=== PATIENT | male | born 1950 | race Caucasian/White ===

== ENCOUNTER 2016-06-08 10:35 | Day surgery (SDC) | payer BC ==
--- NOTE | ~2016-06-08 | EGD ---
EGD REPORT [facility] [address] [address] NAME: GEOVANNA BURRIS : [birth year] STATUS : REG [facility] [place] PAT#: [id number] AGE: 65 ADM/REG DATE : 06/08/16 MR#: [id number] REPORT SERV DATE: 06/08/16 DICTATED BY: DANIELLE ROLLE DATE: 06/08/16 REPORT STATUS : Draft [facility]ANS[facility]IB[facility]: [facility] DATE: 06/08/16 Endoscopy Center Patient Name: Geovanna Burris Date of : 1950 Attending MD: DANIELLE ROLLE MD Procedure Date No Time: 06/08/2016 Procedure: Colonoscopy Indications: Screening for colorectal malignant neoplasm Referring MD: VIBHA AMATO Medicines: as per anesthesia Complications: No immediate complications. Procedure: Pre-Anesthesia Assessment: - ASA Grade Assessment: III - A patient with severe systemic disease. After I obtained informed consent, the scope was passed under direct vision. Throughout the procedure, the patient's blood pressure, pulse, and oxygen saturations were monitored continuously. The PCF [id number] was introduced through the anus and advanced to the cecum, identified by appendiceal orifice and ileocecal valve. The colonoscopy was performed without difficulty. The patient tolerated the procedure. The quality of the bowel preparation was adequate to identify polyps. Findings: The perianal and digital rectal examinations were normal. A sessile polyp was found in the ascending colon. The polyp was 5 mm in size. The polyp was removed with a jumbo cold forceps. Resection and retrieval were complete. A few small-mouthed diverticula were found in the sigmoid colon. Internal hemorrhoids were found during endoscopy and were mild. Impression: - One 5 mm polyp in the ascending colon. Resected and retrieved. - Diverticulosis in the sigmoid colon. - Internal hemorrhoids. Recommendation: - Await pathology results. - Repeat colonoscopy for surveillance based on pathology results. Procedure Code(s): --- Professional --- 79715, Colonoscopy, flexible, proximal to splenic flexure; with biopsy, single or multiple EGD REPORT [facility] [address] [place]. [address] NAME: GEOVANNA BURRIS : [birth year] STATUS : REG [facility]#: [id number] AGE: 65 ADM/REG DATE : 06/08/16 MR#: [id number] REPORT SERV DATE: 06/08/16 DICTATED BY: DANIELLE ROLLE. DATE: 06/08/16 REPORT STATUS : Draft TRANSCRIBED BY: [employer] DATE: 06/08/16 Diagnosis Code(s): --- Professional --- D12.2, Benign neoplasm of ascending colon K64.8, Other hemorrhoids K57.30, Diverticulosis of large intestine without perforation or abscess without bleeding Z12.11, Encounter for screening for malignant neoplasm of colon CPT copyright 2013 [employer]. All rights reserved. The codes documented in this report are preliminary and upon pulmonologist review may be revised to meet current compliance requirements. DANIELLE ROLLE MD 06/08/2016 1:28 PM This report has been signed electronically. Number of Addenda: 0 Note Initiated On: 06/08/2016 1:01 PM Scope Withdrawal Time 0 hours 7 minutes 2 seconds [address] [facility] [place] [address]
[~2016-06-08 10:35] MED LIST: ASAB PO; FISH-EPA1000 MG PO; KLONO1 PO; LIPITOR80 MG PO; LOP25 PO; NORCO1 TAB PO; PLAVIX PO; VITAMIN D31000 UNIT PO; ZOCOR40 PO
== END 2016-06-08 23:59 | disposition home health service (06) ==
LOC: DMU 10:35
PROVIDERS: Internal Medicine Gastroenterology
PROC: 0DBK8ZX Excision of Ascending Colon, Via Natural or Artificial Opening Endoscopic, Diagnostic (ICD-10-PCS; principal; 2016-06-08 12:00)
DX: Z12.11 Encounter for screening for malignant neoplasm of colon (principal); D12.2 Benign neoplasm of ascending colon; K64.8 Other hemorrhoids; K57.30 Diverticulosis of large intestine without perforation or abscess without bleeding; I10 Essential (primary) hypertension; Z95.1 Presence of aortocoronary bypass graft; Z87.891 Personal history of nicotine dependence; E78.00 Pure hypercholesterolemia, unspecified; I25.10 Atherosclerotic heart disease of native coronary artery without angina pectoris; Z87.442 Personal history of urinary calculi; Z98.890 Other specified postprocedural states
CPT/HCPCS: 88305